=== PATIENT | male | born 1990 | race Caucasian/White ===

== ENCOUNTER 2018-02-04 07:42 | Emergency (ER) | payer SELFPAY ==
[~2018-02-04] VITALS: Ht 188 cm; Wt 90.7 kg
[2018-02-04] MEDS ORDERED: NS IV 1000 ML 1,000 ML IV ONE ×2 (07:57→09:47)
[2018-02-04] MEDS ORDERED: PANTOPRAZOLE 40 MG/10 ML (PROTONIX) VIAL IV STA (07:57)
[2018-02-04] MEDS ORDERED: ONDANSETRON 4 MG/2 ML (SDV) Z0FRAN IVP ONE (08:00)
--- NOTE | 2018-02-04 08:12 | ED GI ---
General Chief Complaint: Rect Problems Stated Complaint: COUGHING UP BLOOD AND BLOODY STOOL Nursing Triage Note: PT STATES LLQ PAIN RADIATING UP INTO HIS BACK, DIARRHEA WITH BLOOD THAT STARTED YESTERDAY, AND VOMITING WITH BLOOD 3 TIMES TODAY. Sepsis Screen: No Definite Risk Source of Information: Patient Exam Limitations: No Limitations History of Present Illness Date Seen by Provider: Feb 04, 2018 Time Seen by Provider: 07:55 Initial Comments PT ARRIVES VIA POV FROM WORK AT [employer] PT STATES HE BEGAN HAVING BLOODY DIARRHEA YESTERDAY AFTERNOON AROUND 1400 STATES HE IS HAVING 1-2 STOOLS EVERY 1-2 HOURS APPROXIMATELY 2 HOURS AGO, WHILE AT WORK, HE VOMITED X 3--STATES WAS MOSTLY BLOOD C/O SHARP, INTERMITTENT LEFT MID ABDOMINAL PAIN RADIATING TO LEFT FLANK HAS BEEN DIZZY TODAY NO HISTORY OF SIMILAR NO SICK CONTACTS OR SUSPICIOUS FOODS PT DRINKS ON REGULAR BASIS--UP TO 12 BEERS PLUS A FIFTH OF HARD LIQUOR A DAY-- LAST ETOH WAS 3-4 DAYS AGO Allergies and Home Medications Allergies Coded Allergies: No Known Drug Allergies (Unverified , 02/04/18) Home Medications Pantoprazole Sodium 40 Mg Tablet.dr, 40 MG PO DAILY Prescribed by: RIKA MURRAY on 02/04/18 1039 Patient Home Medication List Home Medication List Reviewed: Yes Review of Systems Constitutional: No diaphoresis; dizziness Respiratory: No Symptoms Reported Cardiovascular: No Symptoms Reported Gastrointestinal: See HPI, Abdominal Pain, Diarrhea, Nausea, Rectal Bleeding, Vomiting Genitourinary: No Symptoms Reported Musculoskeletal: see HPI, back pain Skin: no symptoms reported Psychiatric/Neurological: No Symptoms Reported Endocrine: No Symptoms Reported Hematologic/Lymphatic: See HPI Past Ksfasyn-Vrfisn-Eqnysv Hx Patient Social History Alcohol Use: Regular Use (12 BEERS PLUS FIFTH OF HARD LIQUOR A DAY) Recreational Drug Use: No Smoking Status: Current Everyday Smoker (1 PPD) Recent Foreign Travel: No Contact w/Someone Who Travel: No Recent Infectious Disease Expo: No Past Medical History Surgeries: No Respiratory: No Cardiac: No Neurological: No Genitourinary: No Gastrointestinal: No Musculoskeletal: No Endocrine: No HEENT: No Cancer: No Psychosocial: No Integumentary: No Blood Disorders: No Physical Exam Vital Signs Capillary Refill : Less Than 3 Seconds Height/Weight/BMI Height: 6'2.00" Weight: 200lbs.oz.[id number]; BMI Method:Actual General Appearance: WD/WN, no apparent distress, other (EXTREMELY MALODOROUS) HEENT: No pale conjunctivae (R), No pale conjunctivae (L); other (POOR DENTITION) Neck: normal inspection Respiratory: normal breath sounds, no respiratory distress, no accessory muscle use Cardiovascular: regular rate, rhythm, no edema, no JVD, no murmur Gastrointestinal: normal bowel sounds, soft, no organomegaly, no pulsatile mass ; No distended, No guarding, No rebound; tenderness (DIFFUSE MODERATE LEFT MID ABDOMINAL TENDERNESS AND MILD RLQ TENDERNESS) Extremities: normal inspection, no pedal edema, no calf tenderness Back: CVA tenderness (L) Neurologic/Psychiatric: 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, no motor/sensory deficits, alert, normal mood/affect, oriented x 3 Skin: normal color, warm/dry Progress/Results/Core Measures Results/Orders Lab Results Laboratory Tests Test 02/04/18 08:05 02/04/18 08:15 Range/Units Urine Color YELLOW Urine Clarity CLEAR Urine pH 7 5-9 Urine Specific [place] 1.010 L 1.016-1.022 Urine Protein 1+ H NEGATIVE Urine Glucose (UA) NEGATIVE NEGATIVE Urine Ketones NEGATIVE NEGATIVE Urine Nitrite NEGATIVE NEGATIVE Urine Bilirubin NEGATIVE NEGATIVE Urine Urobilinogen 1 NORMAL MG/DL Urine Leukocyte Esterase 2+ H NEGATIVE Urine RBC (Auto) NEGATIVE NEGATIVE Urine RBC NONE /HPF Urine WBC RARE /HPF Urine Squamous Epithelial Cells 0-2 /HPF Urine Crystals NONE /LPF Urine Bacteria TRACE /HPF Urine Casts NONE /LPF Urine Mucus NEGATIVE /LPF Urine Culture Indicated NO Urine Opiates Screen NEGATIVE NEGATIVE Urine Oxycodone Screen NEGATIVE NEGATIVE Urine Methadone Screen NEGATIVE NEGATIVE Urine Propoxyphene Screen NEGATIVE NEGATIVE Urine Barbiturates Screen NEGATIVE NEGATIVE Ur Tricyclic Antidepressants Screen NEGATIVE NEGATIVE Urine Phencyclidine Screen NEGATIVE NEGATIVE Urine Amphetamines Screen NEGATIVE NEGATIVE Urine Methamphetamines Screen NEGATIVE NEGATIVE Urine Benzodiazepines Screen NEGATIVE NEGATIVE Urine Cocaine Screen NEGATIVE NEGATIVE Urine Cannabinoids Screen NEGATIVE NEGATIVE White Blood Count 8.8 4.3-11.0 10^3/uL Red Blood Count 4.49 4.35-5.85 10^6/uL Hemoglobin 14.4 13.3-17.7 G/DL Hematocrit 40 40-54 % Mean Corpuscular Volume 89 80-99 FL Mean Corpuscular Hemoglobin 32 25-34 PG Mean Corpuscular Hemoglobin Concent 36 32-36 G/DL Red Cell Distribution Width 13.4 10.0-14.5 % Platelet Count 210 130-400 10^3/uL Mean Platelet Volume 10.9 H 7.4-10.4 FL Neutrophils (%) (Auto) 73 42-75 % Lymphocytes (%) (Auto) 17 12-44 % Monocytes (%) (Auto) 6 0-12 % Eosinophils (%) (Auto) 3 0-10 % Basophils (%) (Auto) 1 0-10 % Neutrophils # (Auto) 6.4 1.8-7.8 X 10^3 Lymphocytes # (Auto) 1.5 1.0-4.0 X 10^3 Monocytes # (Auto) 0.6 0.0-1.0 X 10^3 Eosinophils # (Auto) 0.3 0.0-0.3 10^3/uL Basophils # (Auto) 0.0 0.0-0.1 10^3/uL Prothrombin Time 14.0 12.2-14.7 SEC INR Comment 1.1 0.8-1.4 Activated Partial Thromboplast Time 31 24-35 SEC Sodium Level 144 135-145 MMOL/L Potassium Level 4.0 3.6-5.0 MMOL/L Chloride Level 112 H 98-107 MMOL/L Carbon Dioxide Level 25 21-32 MMOL/L Anion Gap 7 5-14 MMOL/L Blood Urea Nitrogen 15 7-18 MG/DL Creatinine 0.86 0.60-1.30 MG/DL Estimat Glomerular Filtration Rate > 60 BUN/Creatinine Ratio 17 Glucose Level 92 70-105 MG/DL Calcium Level 8.7 8.5-10.1 MG/DL Magnesium Level 2.2 1.8-2.4 MG/DL Total Bilirubin 0.6 0.1-1.0 MG/DL Aspartate Amino Transf (AST/SGOT) 30 5-34 U/L Alanine Aminotransferase (ALT/SGPT) 22 0-55 U/L Alkaline Phosphatase 65 40-136 U/L Total Protein 6.5 6.4-8.2 GM/DL Albumin 3.9 3.2-4.5 GM/DL Amylase Level 62 25-125 U/L Lipase 20 8-78 U/L Serum Alcohol < 10 <10 MG/DL My Orders Orders - RIKA MURRAY DO Saline Lock/Iv-Start (02/04/18 07:57) Monitor-Rhythm Ecg Trace Only (02/04/18 07:57) Ct Abdomen/Pelvis W (02/04/18 07:57) Alcohol (02/04/18 07:57) Amylase (02/04/18 07:57) Cbc With Automated Diff (02/04/18 07:57) Comprehensive Metabolic Panel (02/04/18 07:57) Drug Screen Stat (Urine) (02/04/18 07:57) Lipase (02/04/18 07:57) Magnesium (02/04/18 07:57) Protime With Inr (02/04/18 07:57) Partial Thromboplastin Time (02/04/18 07:57) Ua Culture If Indicated (02/04/18 07:57) Acute Abd Series (02/04/18 07:57) Ondansetron Injection (Zofran Injectio (02/04/18 08:00) Saline Lock/Iv-Start (02/04/18 07:57) Ns Iv 1000 Ml (Sodium Chloride 0.9%) (02/04/18 07:57) Pantoprazole Injection (Protonix Injecti (02/04/18 07:57) Iohexol Injection (Omnipaque 350 Mg/Ml 1 (02/04/18 08:15) Ns (Ivpb) (Sodium Chloride 0.9%) (02/04/18 08:15) Contrast Received (Contrast Received) (02/04/18 08:15) Saline Lock/Iv-Start (02/04/18 09:47) Ns Iv 1000 Ml (Sodium Chloride 0.9%) (02/04/18 09:47) Iv Push Paint Prep Technician Ed (02/05/18 ) Iv Push Paint Prep Technician Ed (02/04/18 ) Medications Given in ED Vital Signs/I&O Blood Pressure Mean: 87 Progress Progress Note : Progress Note NO VOMITING OR DIARRHEA OR BOWEL MOVEMENT IN ER Diagnostic Imaging Comments ACUTE ABDOMEN XRAYS--NO ACUTE PROCESS CT ABDOMEN/PELVIS--NO ACUTE PROCESS PER RADIOLOGIST REPORTS @ 0902 Reviewed: Reviewed by Me Departure Impression Primary Impression: REPORTED HEMATMESIS AND BLOODY DIARRHEA Disposition: 01 HOME, SELF-CARE Condition: Stable Departure-Patient Inst. Referrals: DARRYL TOM DO NO,LOCAL PHYSICIAN (PCP) Primary Care Physician Patient Instructions: Bloody Stools, Adult (DC), [id number], Nausea and Vomiting, Adult (DC) Add. Discharge Instructions: CLEAR LIQUIDS--WATER, BROTH, JELLO, GATORADE BRATS DIET --BANANAS, RICE, APPLESAUCE, TOAST, SALTINES FOLLOW UP WITH DR. TOM FOR FURTHER CARE--CALL OFFICE FOR APPOINTMENT All discharge instructions reviewed with patient and/or family. Voiced understanding. Scripts Pantoprazole Sodium (Protonix) 40 Mg Tablet. 40 MG PO DAILY, #15 TAB Prov: RIKA MURRAY DO 02/04/18 RIKA MURRAY DO Feb 04, 2018 08:12
[2018-02-04] MEDS ORDERED: NS 250 ML (IVPB) BAG IV ONE (08:15)
[2018-02-04] MEDS ORDERED: IOHEXOL 350 MG/ML 100 ML (OMNIPAQUE 350) VIAL IV ONE (08:15)
[2018-02-04] MEDS ORDERED: RECEIVED CONTRAST (Hold Metformin) IV SCH (08:15)
[2018-02-04 08:21] LABS: BILIRUBIN,URINE NEGATIVE (NEGATIVE); CLARITY,URINE CLEAR; COLOR,URINE YELLOW; GLUCOSE, URINE (UA) NEGATIVE (NEGATIVE); KETONES,URINE NEGATIVE (NEGATIVE); LEUKOCYTE ESTERASE ,URINE 2+ (NEGATIVE); NITRITE,URINE NEGATIVE (NEGATIVE); PH,URINE 7 (5-9); PROTEIN,URINE 1+ (NEGATIVE); UROBILINOGEN,URINE 1 MG/DL (NORMAL)
[2018-02-04 08:31] LABS: BACTERIA,URINE TRACE /HPF; SQUAMOUS EPITHELIAL CELL,UR 0-2 /HPF; WBC,URINE RARE /HPF
[2018-02-04 08:39] LABS: AMPHETAMINE SCREEN, URINE NEGATIVE (NEGATIVE); BARBITURATE SCREEN URINE NEGATIVE (NEGATIVE); BENZODIAZEPINES SCREEN URINE NEGATIVE (NEGATIVE); CANNABINOID SCREEN, URINE NEGATIVE (NEGATIVE); COCAINE SCREEN URINE NEGATIVE (NEGATIVE); METHADONE STAT NEGATIVE (NEGATIVE); METHAMPHETAMINE SCREEN URINE S NEGATIVE (NEGATIVE); OPIATE SCREEN URINE NEGATIVE (NEGATIVE); OXYCODONE STAT NEGATIVE (NEGATIVE); PROPOXYPHENE STAT NEGATIVE (NEGATIVE); TRICYCLIC ANTIDEPRESSANTS SCRE NEGATIVE (NEGATIVE)
[2018-02-04 08:46] LABS: BASOPHILS % (AUTO) 1 % (0-10); EOSINOPHILS # (AUTO) 0.3 10^3/uL (0.0-0.3); EOSINOPHILS % (AUTO) 3 % (0-10); HEMATOCRIT 40 % (40-54); HEMOGLOBIN 14.4 G/DL (13.3-17.7); LYMPHOCYTES # (AUTO) 1.5 X 10^3 (1.0-4.0); LYMPHOCYTES % (AUTO) 17 % (12-44); MEAN CORPUSCULAR HEMOGLOBIN 32 PG (25-34); MEAN CORPUSCULAR HGB CONC 36 G/DL (32-36); MEAN CORPUSCULAR VOLUME 89 FL (80-99); MEAN PLATELET VOLUME 10.9 FL (7.4-10.4); MONOCYTES # (AUTO) 0.6 X 10^3 (0.0-1.0); MONOCYTES % (AUTO) 6 % (0-12); NEUTROPHILS # (AUTO) 6.4 X 10^3 (1.8-7.8); NEUTROPHILS % (AUTO) 73 % (42-75); PLATELET COUNT 210 10^3/uL (130-400); RED BLOOD COUNT 4.49 10^6/uL (4.35-5.85); RED CELL DISTRIBUTION WIDTH 13.4 % (10.0-14.5); WHITE BLOOD COUNT 8.8 10^3/uL (4.3-11.0)
--- NOTE | 2018-02-04 08:53 | Diagnostic Imaging Report ---
CLINICAL INDICATION: Patient has left lower quadrant pain radiating up into back. Patient has diarrhea with blood that started yesterday and vomiting with blood 3 times a day. EXAMS: X-ray of the chest PA view and x-ray of the abdomen supine and upright views. COMPARISONS: None. FINDINGS: LUNGS/ PLEURA: Lungs are clear. There is no pneumothorax. There is no pleural effusion. MEDIASTINUM: Unremarkable. PULMONARY VASCULATURE: Unremarkable. HEART: Unremarkable. BONES/ EXTRATHORACIC SOFT TISSUE: Unremarkable. ABDOMEN AND PELVIS: Unremarkable x-ray of the abdomen with nonobstructed bowel gas pattern. There is no evidence of abdominal free air. There is a moderate amount of stool in the right colon. There are no focal calcifications overlying the expected regions/ pathways of both kidneys, ureters, and bladder regions. Extruded contrast seen in the bilateral renal collecting system and bladder. IMPRESSION: 1: Unremarkable chest x-ray exam with no radiographic evidence of acute cardiopulmonary process. 2: Unremarkable x-ray of the abdomen. 3: There is a moderate amount of stool in the right colon. Dictated by: Dictated on workstation # [id number]
--- NOTE | 2018-02-04 08:55 | Diagnostic Imaging Report ---
CLINICAL INDICATION: Patient with nausea, vomiting blood up. EXAM: CT exam of the abdomen and pelvis is performed with 100 cc of 350 IV contrast and oral contrast. Coronal and sagittal reformatted images are created. COMPARISON: X-ray of the abdomen dated 02/04/2018 at 0832 hrs. FINDINGS: Visualized lung bases: There is minimal dependent atelectasis involving posterior aspects of both lungs. Liver: Unremarkable. Gallbladder: Unremarkable. Pancreas: Unremarkable. Spleen: Unremarkable. Adrenal glands: Unremarkable. Kidneys/ ureters: Unremarkable. Aorta: Unremarkable. Intraabdominal/ retroperitoneal contents: Unremarkable. Intestines: Unremarkable. There is moderate amount of stool in the right side of the colon. Appendix: Unremarkable. Bladder: Unremarkable. Pelvic organs: Unremarkable. Extra abdominal/ pelvis regions: Unremarkable. Abdominal wall: Unremarkable. Bones: There are small chronic Schmorl's nodes seen throughout the thoracolumbar spine. IMPRESSION: Unremarkable CT scan of the abdomen and pelvis. Dictated by: Dictated on workstation # [id number]
[2018-02-04 09:00] LABS: INR 1.1 (0.8-1.4)
[2018-02-04 09:08] LABS: ALANINE AMINOTRANSFERASE 22 U/L (0-55); ALBUMIN 3.9 GM/DL (3.2-4.5); ALKALINE PHOSPHATASE 65 U/L (40-136); AMYLASE 62 U/L (25-125); BILIRUBIN,TOTAL 0.6 MG/DL (0.1-1.0); BUN/CREATININE RATIO 17; CALCIUM 8.7 MG/DL (8.5-10.1); CARBON DIOXIDE 25 MMOL/L (21-32); CHLORIDE 112 MMOL/L (98-107); CREATININE SERUM 0.86 MG/DL (0.60-1.30); GFR ESTIMATED > 60; GLUCOSE 92 MG/DL (70-105); LIPASE 20 U/L (8-78); MAGNESIUM 2.2 MG/DL (1.8-2.4); SODIUM 144 MMOL/L (135-145); TOTAL PROTEIN 6.5 GM/DL (6.4-8.2)
[2018-02-04] MEDS ORDERED: PANT40TA2 PO (10:39)
--- NOTE | 2018-02-04 10:46 | Consultation ---
History of Present Illness History of Present Illness Patient Consulted On(laura/time) 02/04/18 10:41 Time Seen by Provider: 10:26 History of Present Illness Surgery asked to consult regarding Hematemesis and Blood per Rectum. HPI per ED: Chief Complaint: Rect Problems Stated Complaint: COUGHING UP BLOOD AND BLOODY STOOL Nursing Triage Note: PT STATES LLQ PAIN RADIATING UP INTO HIS BACK, DIARRHEA WITH BLOOD THAT STARTED YESTERDAY, AND VOMITING WITH BLOOD 3 TIMES TODAY. Sepsis Screen: No Definite Risk Source of Information: Patient Exam Limitations: No Limitations History of Present Illness Date Seen by Provider: Feb 04, 2018 Time Seen by Provider: 07:55 Initial Comments PT ARRIVES VIA POV FROM WORK AT [employer] PT STATES HE BEGAN HAVING BLOODY DIARRHEA YESTERDAY AFTERNOON AROUND 1400 STATES HE IS HAVING 1-2 STOOLS EVERY 1-2 HOURS APPROXIMATELY 2 HOURS AGO, WHILE AT WORK, HE VOMITED X 3--STATES WAS MOSTLY BLOOD C/O SHARP, INTERMITTENT LEFT MID ABDOMINAL PAIN RADIATING TO LEFT FLANK HAS BEEN DIZZY TODAY NO HISTORY OF SIMILAR NO SICK CONTACTS OR SUSPICIOUS FOODS PT DRINKS ON REGULAR BASIS--UP TO 12 BEERS PLUS A FIFTH OF HARD LIQUOR A DAY-- LAST ETOH WAS 3-4 DAYS AGO When I spoke to pt he denies any change in eating, no recent travel. states he did have hematemesis appx 2 months ago; at that time he thought it was cause some of his teeth had been bleeding. Pt only told me about "drinking a lot" every couple of months for a day. He states he noticed the blood when he was at work and had wiped. states he has had "stomach pain in the middle, for a while". Allergies and Home Medications Allergies Coded Allergies: No Known Drug Allergies (Unverified , 02/04/18) Home Medications Pantoprazole Sodium 40 Mg Tablet.dr, 40 MG PO DAILY Prescribed by: RIKA MURRAY on 02/04/18 1039 Patient Home Medication List Home Medication List Reviewed: Yes Past Aurxlaq-Qzrrdh-Bbsybd Hx Patient Social History Alcohol Use: Regular Use (12 BEERS PLUS FIFTH OF HARD LIQUOR A DAY) Recreational Drug Use: No Smoking Status: Current Everyday Smoker (1 PPD) Recent Foreign Travel: No Contact w/Someone Who Travel: No Recent Infectious Disease Expo: No Surgeries History of Surgeries: No Respiratory History of Respiratory Disorde: No Cardiovascular History of Cardiac Disorders: No Neurological History of Neurological Disord: No Genitourinary History of Genitourinary Disor: No Gastrointestinal History of Gastrointestinal Di: No Musculoskeletal History of Musculoskeletal Dis: No Endocrine History of Endocrine Disorders: No HEENT History of HEENT Disorders: No Cancer History of Cancer: No Psychosocial History of Psychiatric Problem: No Integumentary History of Skin or Integumenta: No Blood Transfusions History of Blood Disorders: No Family Medical History Significant Family History: Cancer (grandmother of it, unsure what type), Diabetes (Father and mother), Hypertension (Father and Mother) Review of Systems-General Constitutional: No chills, No diaphoresis, No dizziness EENTM: dental problems; No blurred vision, No double vision, No vision loss, No throat pain, No throat swelling Respiratory: No cough, No dyspnea on exertion Cardiovascular: No chest pain, No palpitations Gastrointestinal: abdominal pain, diarrhea, hematemesis Genitourinary: No dysuria, No frequency, No hematuria Musculoskeletal: No back pain, No joint pain, No joint swelling Skin: No change in color, No change in hair/nails Psychiatric/Neurological: Denies Anxiety, Denies Depressed, Denies Headache, Denies Tremors Other pt denies any abnormal bruising or bleeding, denies heat or cold intolerance Physical Exam-General Problems Physical Exam Vital Signs Vital Signs - First Documented 02/04/18 07:57 Temp 98.5 Pulse 72 Resp 20 B/P (MAP) 135/63 (87) O2 Delivery Room Air Capillary Refill : Less Than 3 Seconds General Appearance: WD/WN, no apparent distress Eyes: Bilateral Eye PERRL, Bilateral Eye EOMI HEENT: pharynx normal; No scleral icterus (R), No scleral icterus (L) Neck: non-tender, full range of motion, supple, normal inspection Respiratory: chest non-tender, lungs clear, normal breath sounds, no respiratory distress, no accessory muscle use Cardiovascular: regular rate, rhythm, no edema, no murmur Gastrointestinal: normal bowel sounds, soft, no organomegaly, no pulsatile mass , tenderness Back: no CVA tenderness, no vertebral tenderness Extremities: normal range of motion, non-tender, normal inspection, no pedal edema, no calf tenderness, normal capillary refill 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, no motor/sensory deficits, alert, normal mood/affect, oriented x 3 Skin: normal color, warm/dry Lymphatic: no adenopathy (neck, axilla or groin) Data Review Labs Laboratory Tests 02/04/18 08:05: Urine Color YELLOW, Urine Clarity CLEAR, Urine pH 7, Urine Specific [place] 1.010L, Urine Protein 1+H, Urine Glucose (UA) NEGATIVE, Urine Ketones NEGATIVE, Urine Nitrite NEGATIVE, Urine Bilirubin NEGATIVE, Urine Urobilinogen 1, Urine Leukocyte Esterase 2+H, Urine RBC (Auto) NEGATIVE, Urine RBC NONE, Urine WBC RARE, Urine Squamous Epithelial Cells 0-2, Urine Crystals NONE, Urine Bacteria TRACE, Urine Casts NONE, Urine Mucus NEGATIVE, Urine Culture Indicated NO, Urine Opiates Screen NEGATIVE, Urine Oxycodone Screen NEGATIVE, Urine Methadone Screen NEGATIVE, Urine Propoxyphene Screen NEGATIVE, Urine Barbiturates Screen NEGATIVE, Ur Tricyclic Antidepressants Screen NEGATIVE, Urine Phencyclidine Screen NEGATIVE, Urine Amphetamines Screen NEGATIVE, Urine Methamphetamines Screen NEGATIVE, Urine Benzodiazepines Screen NEGATIVE, Urine Cocaine Screen NEGATIVE, Urine Cannabinoids Screen NEGATIVE 02/04/18 08:15: White Blood Count 8.8, Red Blood Count 4.49, Hemoglobin 14.4, Hematocrit 40, Mean Corpuscular Volume 89, Mean Corpuscular Hemoglobin 32, Mean Corpuscular Hemoglobin Concent 36, Red Cell Distribution Width 13.4, Platelet Count 210, Mean Platelet Volume 10.9H, Neutrophils (%) (Auto) 73, Lymphocytes (%) (Auto) 17 , Monocytes (%) (Auto) 6, Eosinophils (%) (Auto) 3, Basophils (%) (Auto) 1, Neutrophils # (Auto) 6.4, Lymphocytes # (Auto) 1.5, Monocytes # (Auto) 0.6, Eosinophils # (Auto) 0.3, Basophils # (Auto) 0.0, Prothrombin Time 14.0, INR Comment 1.1, Activated Partial Thromboplast Time 31, Sodium Level 144, Potassium Level 4.0, Chloride Level 112H, Carbon Dioxide Level 25, Anion Gap 7, Blood Urea Nitrogen 15, Creatinine 0.86, Estimat Glomerular Filtration Rate > 60 , BUN/Creatinine Ratio 17, Glucose Level 92, Calcium Level 8.7, Magnesium Level 2.2, Total Bilirubin 0.6, Aspartate Amino Transf (AST/SGOT) 30, Alanine Aminotransferase (ALT/SGPT) 22, Alkaline Phosphatase 65, Total Protein 6.5, Albumin 3.9, Amylase Level 62, Lipase 20, Serum Alcohol < 10 Assessment/Plan Assessment/Plan Assessment/Plan Hematemesis GI Bleed Abdominal pain - epigastric and LLQ Unfortunately pt ate a peanut butter sandwich and hot dog on the way to the ER. I had planned on doing an EGD today. Pt will be sent home, can work tomorrow , given PPI, told to eat bland diet if his abdominal pain continues. Return to ER if he continues to have hematemesis or copious blood per rectum. Otherwise, I will schedule EGD and Colonoscopy as an outpt. He will come in to office for bowel prep instructions. Discussed risks and complications of the procedures not limited to pain, bleeding, infection, esophageal rupture and possible intestinal perforation. All questions answered to his and his 's satisfaction. DARRYL TOM DO Feb 04, 2018 10:46
[2018-02-04 11:05] VITALS: BP 117/71
== END 2018-02-04 11:05 | disposition home or self-care (01) ==
LOC: ER 07:47
DX: K92.0 Hematemesis (principal); K92.1 Melena; F17.210 Nicotine dependence, cigarettes, uncomplicated
CPT/HCPCS: 36415; 74022; 74177; 80053; 80306; 80320; 81000; 82150; 83690; 83735; 85025; 85610; 85730; 93041; 96361; 96374; 96375

== ENCOUNTER 2018-05-24 04:49 | Emergency (ER) | payer SELFPAY ==
[~2018-05-24] VITALS: Ht 188 cm; Wt 95.3 kg
[~2018-05-24 04:49] MED LIST: PANT40TA2 PO
--- OUTSIDE RECORDS SUMMARY | 2018-05-24 04:57 | XMS REPORT ---
Author Author ARTURO BARRETT Organization [facility] Address [address] [place] [address] Care Team Providers Care Twist Maker Name Role Phone ARTURO BARRETT Unavailable PROBLEMS Unknown Problems ALLERGIES Substance Reaction Event Type Date Status Zithromax hives Drug Allergy Apr, Active ENCOUNTERS Encounter Location Date Diagnosis [facility], [place] [address] [facility] [id number] [address] Apr, Gastroenteritis K52.9 IMMUNIZATIONS No Known Immunizations SOCIAL HISTORY Never Assessed REASON FOR VISIT Diarrhea/ Vomiting Jyoung MA, Headache Jyoung PLAN OF CARE Activity Details Follow Up w/ PCP, 2 - 3 Days Reason:if symptoms worsen or not improving VITAL SIGNS Height 75 in 2018-04-27 Weight 194.5 lbs 2018-04-27 Temperature 98.4 degrees Fahrenheit 2018-04-27 Heart Rate 62 bpm 2018-04-27 Respiratory Rate 18 2018-04-27 BMI 24.31 kg/m2 2018-04-27 Blood pressure systolic 128 mmHg 2018-04-27 Blood pressure diastolic 80 mmHg 2018-04-27 MEDICATIONS Medication Instructions Dosage Frequency Start Date End Date Duration Status Ondansetron HCl 8 MG Orally Twice a day 1 tablet 12h Apr, 3 days Active RESULTS No Results PROCEDURES No Known procedures INSTRUCTIONS MEDICATIONS ADMINISTERED No Known Medications MEDICAL (GENERAL) HISTORY Type Description Date Surgical History No know Surgical history
--- NOTE | 2018-05-24 05:44 | ED General ---
General Chief Complaint: Cough/Cold/Flu Symptoms Stated Complaint: VOMITING,FEVER SINCE THURSDAY,CHILLS,SHARP PAIN IN H Nursing Triage Note: headache, possible fever, orthostatic dizziness, vomitting, epigastric pain x3 days. Nursing Sepsis Screen: No Definite Risk Source of Information: Patient History of Present Illness Date Seen by Provider: May 24, 2018 Time Seen by Provider: 05:00 Initial Comments PT ARRIVES VIA POV STATES SHE WENT TO WORK AT 0430 AT [employer] AND THEY SENT HIM HOME, SO HE CAME HERE STATES HE HAS BEEN SICK SINCE Thursday05/21/18 C/O SUBJECTIVE FEVER AND CHILLS C/O "REALLY BAD COUGH AND CONGESTION"--COLORED DRAINAGE C/O DIZZINESS ON STANDING C/O NAUSEA / VOMITING/ DIARRHEA HAS VOMITED X 3 TODAY, NO DIARRHEA TODAY C/O EPIGASTRIC PAIN, MOSTLY WHEN HE THROWS UP C/O HEADACHE--TEMPLES TOOK TYLENOL EARLIER TODAY HAS BEEN ILL WITH SAME NO DR Allergies and Home Medications Allergies Coded Allergies: No Known Drug Allergies (Unverified , 02/04/18) Patient Home Medication List Home Medication List Reviewed: Yes Review of Systems Review of Systems Constitutional: see HPI, chills, dizziness, fever EENTM: see HPI, nose congestion; No throat pain Respiratory: see HPI, cough; No short of breath, No wheezing Cardiovascular: no symptoms reported; No chest pain Gastrointestinal: see HPI, abdominal pain, diarrhea, nausea Genitourinary: no symptoms reported Musculoskeletal: no symptoms reported Skin: no symptoms reported Psychiatric/Neurological: See HPI, Headache Hematologic/Lymphatic: No Symptoms Reported Immunological/Allergic: no symptoms reported Past Jxpgsxv-Sbfayp-Mopsve Hx Patient Social History Alcohol Use: Denies Use Recreational Drug Use: No Smoking Status: Current Everyday Smoker (1 PPD) Type Used: Cigarettes 2nd Hand Smoke Exposure: Yes Recent Foreign Travel: No Contact w/Someone Who Travel: No Recent Infectious Disease Expo: No Recent Hopitalizations: No Immunizations Up To Date Tetanus Booster (TDap): Unknown PED Vaccines UTD: Yes Seasonal Allergies Seasonal Allergies: No Past Medical History Surgeries: No Respiratory: No Cardiac: No Neurological: No Genitourinary: No Gastrointestinal: No Musculoskeletal: No Endocrine: No HEENT: No Cancer: No Psychosocial: No Integumentary: No Blood Disorders: No Family Medical History Cancer, Diabetes, Hypertension Physical Exam Vital Signs Vital Signs - First Documented Capillary Refill : Less Than 3 Seconds Height, Weight, BMI Height: 6'2.00" Weight: 210lbs. oz. 95.455544mu; BMI Method:Actual General Appearance: No Apparent Distress, WD/WN HEENT: PERRL/EOMI, TMs Normal, Pharynx Normal, Other (MILD NASAL CONGESTION AND CLEAR POST NASAL DRAINAGE) Neck: Full Range of Motion, Normal Inspection, Non Tender, Supple Respiratory: Normal Breath Sounds, No Accessory Muscle Use, No Respiratory Distress Cardiovascular: Regular Rate, Rhythm, No Edema, No JVD, No Murmur, Normal Peripheral Pulses Gastrointestinal: Normal Bowel Sounds, No Organomegaly, No Pulsatile Mass, Non Tender, Soft Back: Normal Inspection Extremity: Normal Inspection Neurologic/Psychiatric: Alert, Oriented x3, No Motor/Sensory Deficits, Normal Mood/Affect, personal shopper II-XII Norm as Tested Skin: Normal Color, Warm/Dry Progress/Results/Core Measures Suspected Sepsis Recent Fever Within 48 Hours: Yes Infection Criteria Present: Suspected New Infection New/Unexplained Altered Menta: No Sepsis Screen: No Definite Risk SIRS Temperature:100.5 Pulse: 85 Respiratory Rate: 18 Blood Pressure 133 /79 Mean: 97 Results/Orders Micro Results Microbiology 05/24/18 Influenza Types A,B Antigen (DAVE) - Final, Complete My Orders Orders - RIKA MURRAY DO Influenza A And B Antigens (05/24/18 05:07) Vital Signs/I&O 05/24/18 05/24/18 04:55 04:55 Temp 100.5 Pulse 85 Resp 18 B/P (MAP) 133/79 (97) Pulse Ox 97 O2 Delivery Room Air Room Air Capillary Refill : Less Than 3 Seconds Blood Pressure Mean: 97 Progress Note : Progress Note NO COUGH AT ANY TIME NO VOMITING OR DIARRHEA AT ANY TIME Departure Impression Primary Impression: Viral syndrome Disposition: 01 HOME, SELF-CARE Condition: Stable Departure-Patient Inst. Referrals: NO,LOCAL PHYSICIAN (PCP/Family) Primary Care Physician Patient Instructions: [id number], Viral Upper Respiratory Infection, Adult (DC) Add. Discharge Instructions: CLEAR LIQUIDS--WATER, BROTH, JELLO, GATORADE BRATS DIET--BANANAS, RICE, APPLESAUCE, TOAST, SALTINES TYLENOL AND MOTRIN NEEDED FOR PAIN OR FEVER FOLLOW UP WITH DR OF CHOICE IN 2-3 DAYS IF NO BETTER All discharge instructions reviewed with patient and/or family. Voiced understanding. Scripts Ondansetron (Zofran Odt) 4 Mg Tab.rapdis 4 MG PO Q4H for Nausea/Vomiting, #10 TAB Prov: RIKA MURRAY DO 05/24/18 Benzonatate (TESSALON PERLES) 100 Mg Capsule 1-2 TAB PO TID for Cough, #30 CAP Prov: RIKA MURRAY DO 05/24/18 Guaifenesin/Dextromethorphan (Mucinex Dm ER 1,200-60 mg Tab) 1 Each Tbmp.12hr 1 EACH PO BID for 10 Days, #20 EA Prov: RIKA MURRAY DO 05/24/18 Work/School Note: Work Release Form Date Seen in the Emergency Department: May 24, 2018 Return to Work: May 25, 2018 RIKA MURRAY DO May 24, 2018 05:44
[2018-05-24] MEDS ORDERED: GUAI1TBM19 PO (06:02)
[2018-05-24] MEDS ORDERED: ONDA4TAB8 PO (06:02)
[2018-05-24] MEDS ORDERED: BENZ100C18 PO (06:02)
[2018-05-24 06:07] VITALS: BP 124/76
== END 2018-05-24 06:07 | disposition home or self-care (01) ==
LOC: EDUNIT# 04:49 → ER 04:53
DX: B34.9 Viral infection, unspecified (principal); F17.210 Nicotine dependence, cigarettes, uncomplicated; Z82.49 Family history of ischemic heart disease and other diseases of the circulatory system
CPT/HCPCS: 87804

== ENCOUNTER 2018-07-07 07:20 | Emergency (ER) | payer SELFPAY ==
[~2018-07-07] VITALS: Ht 177.8 cm; Wt 77.1 kg
[~2018-07-07 07:20] MED LIST changes: +BENZ100C18 PO; +GUAI1TBM19 PO; +ONDA4TAB8 PO
[2018-07-07] MEDS ORDERED: LIDOCAINE 2% VISCOUS 15 ML UDC PO ONE (07:45)
[2018-07-07] MEDS ORDERED: ANTACID SUSP 30 ML UDC (MYLANTA) PO ONE (07:45)
--- NOTE | 2018-07-07 08:05 | ED Cough/URI ---
General Chief Complaint: Cough/Cold/Flu Symptoms Stated Complaint: COUGH;SOB Nursing Triage Note: AMBULATED TO ROOM 10 WITH A COMPLAINT OF COUGH AND CHEST PAIN FOR SEVERAL DAYS. STATES HE WAS COUGHING SO HARD THIS AM THAT HE VOMITED. Source: patient Exam Limitations: no limitations History of Present Illness Date Seen by Provider: Jul 07, 2018 Time Seen by Provider: 07:38 Initial Comments Here with report of cough for 2 weeks and worse over the past few days. Had coughing fit this morning that caused him to vomit. Does have some central chest tightness that is a little worse afterwards. He was at work when he vomited and they wanted him checked out so he came to the emergency department for further evaluation. Timing/Duration: this morning, week, getting worse Severity/Quality: moderate, dry cough Prior Episodes/Possible Cause: occasional episodes Modifying Factors: Improves With Rest Associated Symptoms: chest pain/soreness, cough, fever/chills Allergies and Home Medications Allergies Coded Allergies: No Known Drug Allergies (Unverified , 02/04/18) Home Medications No Active Prescriptions or Reported Meds Patient Home Medication List Home Medication List Reviewed: Yes Review of Systems Review of Systems Constitutional: see HPI, fever EENTM: nose congestion; No throat pain Respiratory: cough, short of breath Cardiovascular: chest pain; No palpitations Gastrointestinal: No abdominal pain, No nausea; vomiting Genitourinary: no symptoms reported Musculoskeletal: no symptoms reported Skin: no symptoms reported Psychiatric/Neurological: No Symptoms Reported All Other Systems Reviewed Negative Unless Noted: Yes Past Tqbsouz-Parcrh-Qmvcbb Hx Past Med/Social Hx: Reviewed Nursing Past Med/Soc Hx Patient Social History Alcohol Use: Occasionally Uses Recreational Drug Use: No Smoking Status: Current Everyday Smoker Type Used: Cigarettes 2nd Hand Smoke Exposure: Yes Recent Foreign Travel: No Contact w/Someone Who Travel: No Recent Infectious Disease Expo: No Recent Hopitalizations: No Immunizations Up To Date Tetanus Booster (TDap): Unknown PED Vaccines UTD: Yes Seasonal Allergies Seasonal Allergies: No Past Medical History Surgeries: No Respiratory: No Cardiac: No Neurological: No Genitourinary: No Gastrointestinal: No Musculoskeletal: No Endocrine: No HEENT: No Cancer: No Psychosocial: No Integumentary: No Blood Disorders: No Family Medical History Reviewed Nursing Family Hx Cancer, Diabetes, Hypertension Physical Exam Vital Signs - First Documented 07/07/18 07:38 Temp 98.2 Pulse 83 Resp 15 B/P (MAP) 114/65 (81) Pulse Ox 100 O2 Delivery Room Air Capillary Refill : Less Than 3 Seconds Height: 5'10.00" Weight: 170lbs. oz. 77.178409jg; BMI Method:Estimated General Appearance: WD/WN, no apparent distress HEENT: PERRL/EOMI, pharynx normal Neck: full range of motion, supple Respiratory: lungs clear, normal breath sounds Cardiovascular: regular rate, rhythm, no murmur Gastrointestinal: non tender, soft Neurologic/Psychiatric: alert, oriented x 3 Skin: normal color, warm/dry Progress/Results/Core Measures Suspected Sepsis Recent Fever Within 48 Hours: No Infection Criteria Present: Suspected New Infection New/Unexplained Altered Menta: No Sepsis Screen: No Definite Risk SIRS Temperature:98.2 Pulse: 83 Respiratory Rate: 15 Blood Pressure 114 /65 Mean: 81 Results/Orders My Orders Orders - ERNIE FRY MD Chest Pa/Lat (2 View) (07/07/18 07:41) Lidocaine 2% Viscous 15 Ml (Xylocaine Vi (07/07/18 07:45) Antacid Suspension (Mylanta Suspension (07/07/18 07:45) Medications Given in ED Current Medications Medications Dose Ordered Sig/Oliver Route Start Time Stop Time Status Last Admin Dose Admin Al Hydrox/Mg Hydrox/Simethicone 30 ml ONCE ONCE PO 07/07/18 07:45 07/07/18 07:46 DC 07/07/18 07:50 30 ML Lidocaine HCl 15 ml ONCE ONCE PO 07/07/18 07:45 07/07/18 07:46 DC 07/07/18 07:50 15 ML Vital Signs/I&O 07/07/18 07:38 Temp 98.2 Pulse 83 Resp 15 B/P (MAP) 114/65 (81) Pulse Ox 100 O2 Delivery Room Air Capillary Refill : Less Than 3 Seconds Blood Pressure Mean: 81 Progress Note : Progress Note Seen and evaluated. GI cocktail ordered. Two-view chest x-ray ordered. Monitor patient. 0838: Improved overall. Resting peacefully without difficulty. Discharged home with return precautions. Patient verbalize understanding instructions and agreement with plan. Diagnostic Imaging Diagonstic Imaging: Xray Plain Films/CT/US/NM/MRI: chest Comments NAME: LESLEY VAZQUEZ MED REC#: [id number] PT STATUS: REG ER : 1990 PHYSICIAN: ERNIE FRY MD ADMIT DATE: 07/07/18/ER Signed Date of Exam: 07/07/18 CHEST PA/LAT (2 VIEW) EXAMINATION: PA and lateral chest at 8:21 AM INDICATION: Cough The heart size is within normal limits and stable when compared to 02/04/2018. The lungs are clear. There is no evidence for failure, pneumonia or for a pleural effusion. The mediastinum is not widened. The osseous structures are intact. IMPRESSION: There is no evidence for an acute cardiopulmonary abnormality. Dictated by: Dictated on workstation # [id number] Dict: 07/07/18804 Trans: 07/07/18807 Interpreted by: SARA MOTTA MD Electronically signed by: SARA MOTTA MD 07/07/18807 Departure Impression Primary Impression: Bronchitis Disposition: 01 HOME, SELF-CARE Condition: Stable Departure-Patient Inst. Decision time for Depature: 08:40 Referrals: NO,LOCAL PHYSICIAN (PCP/Family) Primary Care Physician Patient Instructions: Acute Bronchitis, Adult (DC) Add. Discharge Instructions: All discharge instructions reviewed with patient and/or family. Voiced understanding. Take medications as directed. You may take [id number] Pepcid or the generic famotidine 20 mg once or twice daily for the next few days for stomach upset and then daily thereafter as needed. Follow-up with your DrTra in a few days for recheck. Return for worse pain, fever, vomiting, weakness, breathing problems or other concerns as needed. Scripts Prednisone (Prednisone) 20 Mg Tab 40 MG PO DAILY, #10 TAB 0 Refills Prov: ERNIE FRY MD 07/07/18 Work/School Note: Local Medical Staff Listing, Work Release Form Date Seen in the Emergency Department: Jul 07, 2018 Return to Work: Jul 08, 2018 Restrictions: No Restrictions ERNIE FRY MD Jul 07, 2018 08:05
--- NOTE | 2018-07-07 08:10 | Diagnostic Imaging Report ---
EXAMINATION: PA and lateral chest at 8:21 AM INDICATION: Cough The heart size is within normal limits and stable when compared to 02/04/2018. The lungs are clear. There is no evidence for failure, pneumonia or for a pleural effusion. The mediastinum is not widened. The osseous structures are intact. IMPRESSION: There is no evidence for an acute cardiopulmonary abnormality. Dictated by: Dictated on workstation # [id number]
[2018-07-07] MEDS ORDERED: PRD20T PO (08:47)
[2018-07-07 08:54] VITALS: BP 114/65
== END 2018-07-07 08:54 | disposition home or self-care (01) ==
LOC: EDUNIT# 07:20 → ER 07:22
DX: J40 Bronchitis, not specified as acute or chronic (principal); F17.210 Nicotine dependence, cigarettes, uncomplicated; Z82.49 Family history of ischemic heart disease and other diseases of the circulatory system
CPT/HCPCS: 71046

== ENCOUNTER 2018-08-26 17:41 | Emergency (ER) | payer SELFPAY ==
[~2018-08-26] VITALS: Ht 188 cm; Wt 88.5 kg
[~2018-08-26 17:41] MED LIST changes: +PRD20T PO
--- NOTE | 2018-08-26 18:27 | ED GI ---
General Chief Complaint: Abdominal/GI Problems Stated Complaint: N/V/D Nursing Triage Note: PT AMB TO ROOM #9 W/O DIFFICULTY. A&OX4. C/O ABD PAIN, NAUSEA, VOMITING, AND DIARRHEA THROUGHOUT THIS DAY. PT REPORTS PRIOR TO THIS DAY, PT HAS HAD INTERMITTENT COUGH. REPORTS BODY ACHES. PT REPORTS HE WAS SENT HOME FROM WORK THIS AM, AND ADVISED TO COME TO ED. Sepsis Screen: No Definite Risk Source of Information: Patient Exam Limitations: No Limitations History of Present Illness Date Seen by Provider: Aug 26, 2018 Time Seen by Provider: 18:13 Initial Comments pt presents to ER by POV with 1 week nonprod cough, smoking and today NVD. No blood seen in emesis or stool. No fevers obj. son sick with same thing,. His work at [employer] sent him to get checked out. No work again until Thursday. No rash , camping, unsafe water or travel [facility]. Allergies and Home Medications Allergies Coded Allergies: No Known Drug Allergies (Unverified , 02/04/18) Home Medications Prednisone 20 Mg Tab, 40 MG PO DAILY Prescribed by: ERNIE FRY on 07/07/18 0823 Patient Home Medication List Home Medication List Reviewed: Yes Review of Systems Review of Systems Constitutional: No chills, No diaphoresis EENTM: No Blurred Vision, No Double Vision Respiratory: Cough; Denies Shortness of Air, Denies Wheezing Cardiovascular: Denies Chest Pain, Denies Lightheadedness Gastrointestinal: Denies Abdomen Distended, Denies Abdominal Pain, Denies Constipated; Diarrhea, Nausea Genitourinary: Denies Burning, Denies Discharge Musculoskeletal: No back pain, No joint pain Skin: No pruritus, No rash Past Lezsxhm-Weatjq-Oigurl Hx Patient Social History Alcohol Use: Denies Use Recreational Drug Use: No Smoking Status: Current Everyday Smoker Type Used: Cigarettes 2nd Hand Smoke Exposure: Yes Recent Foreign Travel: No Contact w/Someone Who Travel: No Recent Infectious Disease Expo: No Recent Hopitalizations: No Immunizations Up To Date Tetanus Booster (TDap): Unknown PED Vaccines UTD: Yes Seasonal Allergies Seasonal Allergies: No Past Medical History Surgeries: No Respiratory: No Cardiac: No Neurological: No Genitourinary: No Gastrointestinal: No Musculoskeletal: No Endocrine: No HEENT: No Cancer: No Psychosocial: No Integumentary: No Blood Disorders: No Family Medical History Cancer, Diabetes, Hypertension Physical Exam Vital Signs Vital Signs - First Documented 08/26/18 18:00 Temp 97.4 Pulse 60 Resp 17 B/P (MAP) 107/69 (82) Pulse Ox 98 O2 Delivery Room Air Capillary Refill : Less Than 3 Seconds Height/Weight/BMI Height: 6'2.00" Weight: 195lbs. oz. 88.131546sr; BMI Method:Stated General Appearance: WD/WN, no apparent distress HEENT: PERRL/EOMI, normal ENT inspection, TMs normal, pharynx normal Neck: non-tender, full range of motion, supple, normal inspection Respiratory: chest non-tender, lungs clear, normal breath sounds, no respiratory distress, no accessory muscle use Cardiovascular: normal peripheral pulses, regular rate, rhythm, no edema Peripheral Pulses: 2+ Radial Pulses (R), 2+ Radial Pulses (L) Gastrointestinal: normal bowel sounds, non tender, soft Extremities: normal range of motion, non-tender, normal inspection, normal capillary refill Progress/Results/Core Measures Results/Orders Vital Signs/I&O 08/26/18 18:00 Temp 97.4 Pulse 60 Resp 17 B/P (MAP) 107/69 (82) Pulse Ox 98 O2 Delivery Room Air Blood Pressure Mean: 82 Progress Progress Note : Time: 18:24 Progress Note URI with now GI symptoms and sick contacts in the home. Most likely Gastroenteritis. Zofran odt. No symptoms now. Counseled conservative care. Departure Impression Primary Impression: Gastroenteritis and colitis, viral Disposition: 01 HOME, SELF-CARE Condition: Stable Departure-Patient Inst. Decision time for Depature: 18:26 Referrals: NO,LOCAL PHYSICIAN (PCP) Primary Care Physician Patient Instructions: Viral Gastroenteritis, Adult (DC) Add. Discharge Instructions: Usually resolved in a few days. Zofran every 6 hours for nausea as needed. If Diarrhea persists for more than 48 hours then may take 2 Imodium followed by another every 4 hours that you have watery stools. Disinfect surfaces. Follow up with primary care as needed. All discharge instructions reviewed with patient and/or family. Voiced understanding. Scripts Ondansetron (Ondansetron Odt) 4 Mg Tab.rapdis 4 MG PO Q6H PRN for NAUSEA/VOMITING, #8 TAB 0 Refills Prov: ASHLEE BOWER 08/26/18 Work/School Note: Work Release Form Date Seen in the Emergency Department: Aug 26, 2018 Return to Work: Aug 30, 2018 Restrictions: No Restrictions ASHLEE BOWER Aug 26, 2018 18:27
[2018-08-26] MEDS ORDERED: ONDA4TAB11 PO (18:28)
[2018-08-26 18:50] VITALS: BP 110/76
== END 2018-08-26 18:50 | disposition home or self-care (01) ==
LOC: EDUNIT# 17:41 → ER 17:42
DX: A08.4 Viral intestinal infection, unspecified (principal); F17.210 Nicotine dependence, cigarettes, uncomplicated; Z79.52 Long term (current) use of systemic steroids; Z82.49 Family history of ischemic heart disease and other diseases of the circulatory system

== ENCOUNTER 2018-09-02 17:21 | Emergency (ER) | payer SELFPAY ==
[~2018-09-02] VITALS: Ht 188 cm; Wt 88.5 kg
[~2018-09-02 17:21] MED LIST changes: +ONDA4TAB11 PO
--- NOTE | 2018-09-02 18:11 | ED GI ---
General Chief Complaint: Abdominal/GI Problems Stated Complaint: VOMITING Nursing Triage Note: PT PRESNTS TO ED WITH COMPLAINTS OF N/V/D STARTING 0200 THIS AM. PT REPORTS 3 EPISODES OF VOMITING IN TOTAL. PT REPORTS HE HAD A COUPLE DAYS OF SIMILAR SYMPTOMS LAST WEEK BUT THEY RESOLVED UNTIL TODAY. Sepsis Screen: No Definite Risk Source of Information: Patient Exam Limitations: No Limitations History of Present Illness Date Seen by Provider: Sep 02, 2018 Time Seen by Provider: 17:56 Initial Comments The patient presents to ER by private conveyance with chief complaint that he is having mild abdominal upset, nausea vomiting and diarrhea that started up about 3 or 4 days ago. He was here in the ER was 2 weeks ago and says his been going on for a total of 2 weeks but is been intermittent. At the time he was given some nausea medicines which helped significantly. He said he had a fever Thursday, yesterday but none today. He's been able to drink and keep some fluids down. He does not have any dysuria or dyspareunia. Family and coworkers have all been sick with similar GI bugs. No cough. Allergies and Home Medications Allergies Coded Allergies: No Known Drug Allergies (Unverified , 02/04/18) Home Medications Ondansetron 4 Mg Tab.rapdis, 4 MG PO Q6H PRN for NAUSEA/VOMITING Prescribed by: ASHLEE BOWER on 08/26/18 182 Prednisone 20 Mg Tab, 40 MG PO DAILY Prescribed by: ERNIE FRY on 07/07/18 0844 Patient Home Medication List Home Medication List Reviewed: Yes Review of Systems Review of Systems Constitutional: No chills, No diaphoresis EENTM: No Blurred Vision, No Double Vision Respiratory: Denies Cough, Denies Shortness of Air Cardiovascular: Denies Chest Pain, Denies Edema Gastrointestinal: Denies Abdomen Distended, Denies Abdominal Pain, Denies Constipated; Diarrhea, Nausea; Denies Poor Fluid Intake; Vomiting Genitourinary: Denies Burning, Denies Discharge Musculoskeletal: No back pain, No joint pain Past Mcaegzo-Nfyikt-Cmjnau Hx Patient Social History Alcohol Use: Denies Use Recreational Drug Use: No Smoking Status: Current Everyday Smoker Type Used: Cigarettes 2nd Hand Smoke Exposure: Yes Recent Foreign Travel: No Contact w/Someone Who Travel: No Recent Infectious Disease Expo: No Recent Hopitalizations: No Physical Abuse: No Sexual Abuse: No Mistreated: No Fear: No Immunizations Up To Date Tetanus Booster (TDap): Unknown PED Vaccines UTD: Yes Seasonal Allergies Seasonal Allergies: No Past Medical History Surgeries: No Respiratory: No Cardiac: No Neurological: No Genitourinary: No Gastrointestinal: No Musculoskeletal: No Endocrine: No HEENT: No Cancer: No Psychosocial: No Integumentary: No Blood Disorders: No Family Medical History Cancer, Diabetes, Hypertension Physical Exam Vital Signs Vital Signs - First Documented 09/02/18 17:40 Temp 97.9 Pulse 74 Resp 20 B/P (MAP) 129/77 (94) Pulse Ox 99 Capillary Refill : Less Than 3 Seconds Height/Weight/BMI Height: 6'2.00" Weight: 195lbs. oz. 88.221834xm; BMI Method:Stated General Appearance: WD/WN, no apparent distress HEENT: PERRL/EOMI, pharynx normal (oral mucosa is moist) Respiratory: chest non-tender, lungs clear, normal breath sounds, no respiratory distress, no accessory muscle use Cardiovascular: normal peripheral pulses, regular rate, rhythm Peripheral Pulses: 2+ Radial Pulses (R), 2+ Radial Pulses (L) Gastrointestinal: normal bowel sounds, soft, no organomegaly; No guarding, No rebound; tenderness (mild left lower quadrant), other (now so as her other mesenteric signs) Progress/Results/Core Measures Results/Orders Vital Signs/I&O 09/02/18 17:40 Temp 97.9 Pulse 74 Resp 20 B/P (MAP) 129/77 (94) Pulse Ox 99 Blood Pressure Mean: 94 Progress Progress Note : Time: 18:07 Progress Note Clinically benign story, examination and abdomen. Vital signs are normal with blood pressure being normal heart rate in the 70s and no fever presently. Still is a good chance viral but we may consider since been going on for 2 weeks treating him with a course of antibiotics. We have offered to do some laboratory workup including urinalysis but this time the patient just wants a note for work and some more nausea medicine and antibiotics. Departure Impression Primary Impression: Colitis Additional Impression: Gastroenteritis Disposition: 01 HOME, SELF-CARE Condition: Stable Departure-Patient Inst. Decision time for Depature: 18:12 Referrals: NO,LOCAL PHYSICIAN (PCP/Family) Primary Care Physician Patient Instructions: [id number], LOCAL PHYSICIAN LIST Add. Discharge Instructions: A prescription for more Zofran to be used one tablet every 6 hours as needed for nausea has been sent to the pharmacy. Azithromycin has been prescribed for your colitis you can take 500 mg today followed by one 250 mg tablet daily until they are gone. You may also use Imodium 2 tablets to start followed by one tablet every 4 hours as needed to control your watery diarrhea. Drink plenty of fluids especially sports drinks mixed with water. Stick to a bland diet of rice, bananas, applesauce, toast etc. until your diarrhea has resolved. If it persists into next week then you should establish care with a primary care provider and discuss further workup. All discharge instructions reviewed with patient and/or family. Voiced understanding. Scripts Ondansetron (Ondansetron Odt) 4 Mg Tab.rapdis 4 MG PO Q6H PRN for NAUSEA/VOMITING, #8 TAB 0 Refills Prov: ASHLEE BOWER 09/02/18 Azithromycin (Azithromycin) 250 Mg Tablet 250 MG PO UD, #6 TAB TAKE 2 TABLETS ON DAY ONE THEN TAKE 1 TABLET DAILY FOR FOUR MORE DAYS Prov: ASHLEE BOWER 09/02/18 Work/School Note: Work Release Form Date Seen in the Emergency Department: Sep 02, 2018 Return to Work: Sep 06, 2018 Restrictions: No Restrictions ASHLEE BOWER Sep 02, 2018 18:11
[2018-09-02] MEDS ORDERED: ONDA4TAB11 PO (18:14)
[2018-09-02] MEDS ORDERED: AZIT250T12 PO (18:14)
[2018-09-02 18:20] VITALS: BP 128/86
== END 2018-09-02 18:20 | disposition home or self-care (01) ==
LOC: EDUNIT# 17:21 → ER 17:22
DX: K52.9 Noninfective gastroenteritis and colitis, unspecified (principal); F17.210 Nicotine dependence, cigarettes, uncomplicated; Z79.52 Long term (current) use of systemic steroids; Z82.49 Family history of ischemic heart disease and other diseases of the circulatory system
CPT/HCPCS: 99282